=== PATIENT | female | born 1950 | race Caucasian/White ===

== ENCOUNTER 2018-02-18 17:43 | Emergency (ER) | payer OTHER ==
[2018-02-18 17:57] VITALS: BP 129/67; PULSE 94; TEMP 97.5; BMI 44.9
[2018-02-18] MEDS ORDERED: DIPHTH,PERTUSS(ACELL),TET 0.5 ML DISP.SYRIN IM ONE (19:39)
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
--- NOTE | 2018-02-18 20:15 | PDOC ---
*Physical Exam - Vital Signs Last Vital Signs Temp Pulse Resp BP Pulse Ox 97.5 F L 94 H 18 129/67 95 02/18/18 17:51 02/18/18 17:51 02/18/18 17:51 02/18/18 17:51 02/18/18 17:51 Medical Decision Making - Medical Decision Making 02/18/18 20:15 Pt seen by the Advanced Practice Provider under my direct supervision Ancillary studies reviewed I agree with plan as outlined by the Advanced Practice Provider MASON Abebe
[2018-02-18] MEDS ORDERED: TETRACAINE 0.5% HCL 0.6ML DROPPER.BOTTLE OD ONE (22:24)
[2018-02-18] MEDS ORDERED: FLUORESCEIN NA 1 EA STRIP OD ONE (22:25)
== END 2018-02-19 01:51 | disposition home or self-care (01) ==
LOC: JER 17:43
PROC: 3E0234Z Introduction of Serum, Toxoid and Vaccine into Muscle, Percutaneous Approach (ICD-10-PCS; principal; 2018-02-18)
DX: S02.2XXA Fracture of nasal bones, initial encounter for closed fracture (principal); S05.02XA Injury of conjunctiva and corneal abrasion without foreign body, left eye, initial encounter; Y04.2XXA Assault by strike against or bumped into by another person, initial encounter; Y93.89 Activity, other specified; Y92.128 Other place in nursing home as the place of occurrence of the external cause; Y99.8 Other external cause status; Y07.9 Unspecified perpetrator of maltreatment and neglect; F20.9 Schizophrenia, unspecified; F79 Unspecified intellectual disabilities; E78.5 Hyperlipidemia, unspecified
CPT/HCPCS: 70450-TC; 70486-TC; 90471; 99281-25

== ENCOUNTER 2018-04-24 12:12 | Inpatient (IN) | payer OTHER | END 2018-05-05 21:27 | LOC: JER 12:12 → J4W 05-01 17:04 → JERBED 15:01 → JICU 19:11 ==